=== PATIENT | female | born 1970 ===

== ENCOUNTER 2019-08-14 12:26 | Day surgery (SDC) | payer BC ==
[~2019-08-14 12:26] MED LIST: Buffered Lidocaine 1% SYRIN* 1 ML/SYRINGE INTRADERM ONE; Lactated Ringers 1000 ML Bag* 1,000 ML IV SCH
[2019-08-14] MEDS ORDERED: ceFAZolin 2 GM PREMIX in ORs 2 GM/50 ML BAG ONE (13:01)
[2019-08-14] MEDS ORDERED: fentaNYL* 50 MCG/ML 2 ML VIAL (100 MCG VIAL) ONE ×2 (13:26→15:10)
[2019-08-14] MEDS ORDERED: Midazolam* 1 MG/ML 2 ML VIAL (2 MG) ONE (13:26)
[2019-08-14] MEDS ORDERED: Naloxone* 0.4 MG/ML 1 ML VIAL IV PRN (14:15)
[2019-08-14] MEDS ORDERED: HYDROmorphone INJ1* 1 MG/ML SYRINGE IV PRN (14:15)
[2019-08-14] MEDS ORDERED: Bupivacaine 0.5%* 50 ML MDV VIAL ONE (14:49)
[2019-08-14] MEDS ORDERED: Ondansetron INJ* 2 MG/ML VIAL ONE (15:51)
[2019-08-14] MEDS ORDERED: Propofol* 10 MG/ML 20 ML BTL ONE (15:51)
[2019-08-14] MEDS ORDERED: Ketorolac INJ* 30 MG/ML 1 ML VIAL ONE (15:51)
[2019-08-14] MEDS ORDERED: Dexamethasone IV* 4 MG/ML 1 ML (4 MG) ONE (15:51)
--- NOTE | 2019-08-14 16:19 | OP ---
Operative Report - Blank - Operative Report Date of Operation: 08/14/19 Note: PATIENT: Andreina Spencer DATE OF : 1970 DATE OF SURGERY: 08/14/2019 SURGEON: Rubens Marti MD TABLE TENDER SLUDGE: CHELLY Gonzalez, whos assistance was necessary for positioning, retraction, help with instrumentation, and closure. ANESTHESIOLOGIST: Dr. 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 Right second MTP joint debridement, removal of loose body, synovectomy, excision of osteophytes, and microfracture. 2. Right diaphyseal 2nd metatarsal shortening osteotomy. ANESTHESIA: General IMPLANTS: Arthrex CFS plate and screws TOURNIQUET TIME: Less than 1 hour with a well-padded thigh tourniquet at 250 mmHg SPECIMENS: loose body to pathology ESTIMATED BLOOD LOSS: minimal COMPLICATIONS: none STATUS: Stable from the operating room to the recovery room and then home INDICATIONS FOR PROCEDURE: Andreina has had persistent right forefoot pain from 2nd MT Friebergs infraction. Both operative and non-operative treatment alternatives were reviewed. Further, the nature and risks of surgery were reviewed in careful detail. Our discussions regarding the risks of surgery included, but were not limited to, infection, wound problems, nerve injury, neuroma, RSD, persistent symptoms, blood clot, malunion, nonunion, avascular necrosis, worsening, need for further surgery, failure of the surgery, and even the remote chance of catastrophic complication. DESCRIPTION OF PROCEDURE: The patient was seen in the preoperative holding unit and informed written consent was obtained. The appropriate extremity was marked. The patient was then brought to the operating room and carefully positioned on the operating room table. Anesthesia was induced. All bony prominences were padded with great care. A chlorhexidine based pre-scrub was performed followed by a chloraprep prep and drape in standard sterile fashion. A surgical safety pause was then conducted in which we confirmed the appropriate patient, extremity, planned procedure, availability of equipment, indication and administration of prophylactic antibiotics, and DVT prophylaxis in the form of a compression boot on the non-surgical extremity. I began with an Esmarch exsanguination of limb and inflated tourniquet. I made a longitudinal incision over the dorsum of the second MTP joint. Careful dissection was taken down to the extensor tendons, which were mobilized laterally. I then made a longitudinal arthrotomy into the second MTP joint with a 15 blade scalpel. Excessive synovitis was encountered. An extensive synovectomy was performed with a rongeur. There was a large loose body on the dorsum of the joint, which was excised and sent to pathology. I then inspected the joint. There was loss of cartilage dorsally at the second metatarsal head and also at the base of the proximal phalanx. I used a small curet to remove any flap cartilage back to a stable rim and then used a 0.045 K wire to perform a microfracture of the second metatarsal head and base of the proximal phalanx. I then used a rongeur to excise dorsal osteophytes from the second metatarsal head and base of the proximal phalanx. I made the decision to move forward with a metatarsal shortening osteotomy. I extended the incision proximally along the shaft of the second metatarsal. The extensor tendons were mobilized laterally and the dissection was carried down sharply onto the dorsal aspect of the second metatarsal shaft. I used a 4-hole 2.4 mm plate dorsally on the shaft to predrill the distal 2 screws. The plate was slightly contoured. I then marked out my osteotomy site. I used a small oscillating saw blade to remove a 3-4 millimeter wafer of bone from the mid- diaphysis. This was symmetric throughout. I then placed the plate on the dorsum of the distal fragment and place the 2 pre-drilled and screws. These had excellent purchase. I then compressed the osteotomy site and drilled a screw hole in the oblong hole proximally in compression mode. The screws placed with excellent purchase and did act to compress the osteotomy site further. The last screw hole proximally was drilled and a screw was placed. Again, with excellent purchase. The osteotomy site was well compressed and I could not fit a 15 blade scalpel into the osteotomy at this point. Final fluoroscopic images were obtained. The wound was copiously irrigated and meticulously closed in layers utilizing 3- 0 Monocryl for the capsule and periosteum, as well as the deep dermal layer, and 3-0 Nylon for the skin. A sterile dressing was then applied. The patient was then awakened from anesthesia and transferred to the recovery room in stable condition. There were no complications. All needle and sponge counts were correct at the end of the case. ATTESTATION: I attest I was present and scrubbed and performed the critical portions of the procedure myself. POSTOPERATIVE PLAN: Heel weightbearing for 6 weeks in a boot or postop shoe. She will follow up in 2 weeks for likely suture removal. We will use aspirin for DVT prophylaxis.
[2019-08-14 17:19] VITALS: BP 139/90
== END 2019-08-14 17:35 | disposition home or self-care (01) ==
LOC: OR 12:26
PROVIDERS: ATTEND Orthopaedic Surgery
DX: M92.71 Juvenile osteochondrosis of metatarsus, right foot (principal); M65.871 Other synovitis and tenosynovitis, right ankle and foot; M24.08 Loose body, other site; M94.8X7 Other specified disorders of cartilage, ankle and foot; M25.374 Other instability, right foot; M25.774 Osteophyte, right foot; M79.671 Pain in right foot; J45.909 Unspecified asthma, uncomplicated; Z98.1 Arthrodesis status; Z79.51 Long term (current) use of inhaled steroids
CPT/HCPCS: 76000; 88304; 88311; C1713; C1776; J0690; J1100; J1885; J2250; J2405; J2704; J3010; J3490